=== PATIENT | female | born 1965 | race Caucasian/White ===

== ENCOUNTER 2020-05-31 15:36 | Emergency (ER) | payer OTHER ==
[2020-05-31 16:08] VITALS: BP 139/91; PULSE 89; TEMP 99.4; BMI 38.4
--- NOTE | 2020-05-31 17:16 | PDOC ---
History of Present Illness - General Chief Complaint: Pain Stated Complaint: ABD PAIN Time Seen by Provider: 05/31/20 16:12 History Source: Patient Exam Limitations: No Limitations - History of Present Illness Initial Comments: Linda Rangel is a 54 Y F with a PMH of HTn, HLD, hemorrhagic CVA(2007), ?MS, PSH of 2 C-sec, b/l tubal ligations, presents with Abdominal swelling/distension for 4 months. She reports that she went to see her electrical maintenance man today ( does not remember the name), who evaluated her heart and liver with an ultrasound. She was told by her electrical maintenance man to go to ER and get a CT scan evaluation of her liver, due to abnormal finding/mass in her liver. She reports a SOB with exertions and weight gain of about 35 lbs in recent months, denies any peripheral edema, abdominal pain, SOB at rest, chest pain, palpitations, fever, chills, nausea, vomiting, diarrhea, constipation, bright red blood per rectum, difficulty swallowing, skin discoloration, changes in vision. No hx of alcohol, smoking, illicit drugs, hepatitis, STIs, LMP few years ago, no abnormal bleeding. PCP: Antony Javier 05/31/20 17:22 05/31/20 17:41 Past History - Medical History Allergies/Adverse Reactions: Allergies Allergy/AdvReac Type Severity Reaction Status Date / Time adhesive tape Allergy Verified 06/03/20 16:58 Home Medications: Ambulatory Orders Acetaminophen 650 mg PO QID PRN 05/31/20 Alprazolam 2 mg PO DAILY 05/31/20 Amlodipine Besylate 10 mg PO DAILY 05/31/20 Ascorbate Calcium [Vitamin C] 500 mg PO DAILY 05/31/20 Aspirin 1 tab PO DAILY 05/31/20 Atorvastatin Ca [Lipitor] 10 mg PO DAILY 05/31/20 Baclofen 20 mg PO BID 05/31/20 Calcium Carbonate [Tums Ultra] 1,000 mg PO QID PRN 05/31/20 Cholecalciferol (Vitamin D3) [Vitamin D3 -] 1,000 unit PO DAILY 05/31/20 Docusate Sodium [Docusate 100 mg] 200 mg PO DAILY PRN 05/31/20 Ibuprofen 400 mg PO BID PRN 05/31/20 Labetalol HCl 100 mg PO BID 05/31/20 CVA: Yes (rt side weakness) COPD: No GI Disorders: Yes (constipation) HTN: Yes Hypercholesterolemia: Yes Psychiatric Problems: Yes (anxiety, depression) Other medical history: multiple sclerosis - Reproductive History Is Patient Now?: No - Immunization History Immunization Up to Date: Yes - Psycho-Social/Smoking History Smoking History: Never smoked Have you smoked in the past 12 months: No - Substance Abuse Hx (Audit-C & DAST Scrn) How often the patient has a drink containing alcohol: Never Score: In Men: 4 or > Positive; In Women: 3 or > Positive: 0 Screen Result (Pos requires Nsg. Audit-10AR): Negative In the last yr the pt used illegal drug/Rx for NonMed reason: No Score: Yes response is considered Positive: 0 Screen Result (Positive result requires Nsg. DAST-10): Negative Review of Systems - Review of Systems Able to Perform ROS?: Yes Is the patient limited Congolese proficient: No Constitutional: No: Chills, Fever, Night Sweats HEENTM: No: Blurred Vision, Nose Congestion, Difficulty Swallowing Respiratory: Yes: SOB with Exertion. No: Cough, Orthopnea, Shortness of Breath, SOB at Rest, Hemoptysis Cardiac (ROS): No: Chest Pain, Edema, Lightheadedness, Palpitations ABD/GI: Yes: Abdominal Distended. No: Abd. Pain w/ defecation, Constipated, Diarrhea, Difficulty Swallowing, Nausea, Rectal Bleeding, Vomiting, Abdominal cramping : No: Burning, Dysuria, Discharge, Frequency, Flank Pain, Hematuria Musculoskeletal: No: Back Pain, Joint Pain Integumentary: No: Change in Color, Pruritus Neurological: No: Headache, Numbness, Paresthesia, Pre-Existing Deficit *Physical Exam - Vital Signs Last Vital Signs Temp Pulse Resp BP Pulse Ox 99.4 F 89 18 139/91 95 05/31/20 15:40 05/31/20 15:40 05/31/20 15:40 05/31/20 15:40 05/31/20 15:40 - Physical Exam General Appearance: Yes: Obese. No: Apparent Distress HEENT: positive: EOMI, DUSTIN. negative: Scleral Icterus (R), Scleral Icterus (L), Nasal Congestion, Rhinorrhea Neck: positive: Supple. negative: Carotid bruit, Lymphadenopathy (R), Lymphadenopathy (L) Respiratory/Chest: positive: Lungs Clear, Normal Breath Sounds. negative: Chest Tender, Respiratory Distress, Crackles, Rales, Rhonchi Cardiovascular: positive: Regular Rhythm, Regular Rate, S1, S2. negative: Edema, JVD, Murmur Vascular Pulses: Carotid (R): 2+, Carotid (L): 2+, Dorsalis-Pedis (R): 1+, Doralis-Pedis (L): 1+ Gastrointestinal/Abdominal: positive: Normal Bowel Sounds, Protuberent, Distended. negative: Rebound, Tenderness Musculoskeletal: negative: CVA Tenderness, Vertebral Tenderness Extremity: negative: Pedal Edema, Calf Tenderness Integumentary: positive: Normal Color, Warm, Moist. negative: Jaundice Neurologic: positive: Fully Oriented, Alert, Motor Strength 5/5, Other (b/l tremors). negative: Sensory Deficit ED Treatment Course - LABORATORY CBC & Chemistry Diagram: 05/31/20 17:00 05/31/20 17:00 - RADIOLOGY Radiology Studies Ordered: Category Date Time Status ABDOMEN CT WITH CONTRAST* [CT] Stat CT Scan 05/31/20 16:52 Ordered CXR [CHEST PA & LAT] [RAD] Stat Radiology 05/31/20 16:37 Ordered Medical Decision Making - Medical Decision Making 54 Y F with a PMH of HTn, HLD, hemorrhagic CVA(2007), ?MS, PSH of 2 C-sec, b/l tubal ligations, presents with Abdominal swelling/distension for 4 months. She was told by her electrical maintenance man to go to ER and get a CT scan evaluation of her liver, due to abnormal finding/mass in her liver. #Abdominal distension 2/2 Ascites - Portal HTN , malignancy, - referred from electrical maintenance man for liver mass/abnormality - RUQ: A very large nonspecific approx 23 x 23 cm complex fluid structure is seen within the mid abdomen. - CTAP: 27 x 25 x 19 cm noncalcified smoothly marginated nonspecific cystic structure is seen within the abdomen and pelvis, arising from the left adenexa or possible mesenteric origin. - EKG - CXR - CBC, CMP - PTT, PT(INR) - Hepatitis pannel - UA - Acetaminophen level 05/31/20 17:43 05/31/20 18:16 05/31/20 19:44 Discharge - Discharge Information Problems reviewed: Yes Clinical Impression/Diagnosis: Adnexal cyst Abdominal pain Qualifiers: Abdominal location: generalized Qualified Code(s): R10.84 - Generalized abdominal pain Condition: Unchanged/Unknown Disposition: HOME - Follow up/Referral Referrals: Antony Parson MD [Primary Care Provider] - - Patient Discharge Instructions Additional Instructions: You were seen in [facility] on 05/31/20 for abdominal distension for 4 months, without abdominal pain. You were evaluated at your cardiologists' office and was referred to ER for further evaluation of abnormal RUQ u/s findings. Repeated u/s of your abdomen revealed A very large nonspecific approx 23 x 23 cm complex fluid structure is seen within the mid abdomen. CT Abdomen/pelvis was done to evaluate further, which revealed: 27 x 25 x 19 cm noncalcified smoothly marginated nonspecific cystic structure is seen within the abdomen and pelvis, arising from the left adenexa or possible mesenteric origin. Malignancy cannot be r/o. You have no acute complaints at this time, labs and imaging did not reveal any acute pathology that warrants for inpatient treatment. Because this fluid buildup could be due to malignancy, please follow up with your outpatient street roller engineer doctor for further workup. You were advised of the risks of not following up wi th your PCP and FILM EDITOR SUPERVISOR, including not limited to: delay in diagnosis and treatment, decline in functional status, worsening of your condition, infections, and possible . - Post Discharge Activity
[2020-05-31 17:27] LABS: BASO % 0.7 % (0-2.0); EOS % 2.1 % (0-4.5); HEMATOCRIT 40.5 % (32.4-45.2); HEMOGLOBIN 13.7 GM/dL (10.7-15.3); LYMPH % 29.3 % (8-40); MCH 30.1 pg (25.7-33.7); MEAN CELL VOLUME 88.8 fl (80-96); MONO % 7.7 % (3.8-10.2); NEUT % 60.2 % (42.8-82.8); PLATELET COUNT 179 K/MM3 (134-434); RBC 4.56 M/mm3 (3.60-5.2); RDW 13.6 % (11.6-15.6)
[2020-05-31 17:36] LABS: INR 0.94 (0.83-1.09); PROTHROMBIN TIME (PATIENT) 11.1 SEC (9.7-13.0)
[2020-05-31 17:39] LABS: ACTIVATED PTT 33.2 SECONDS (25.2-36.5)
[2020-05-31 17:50] LABS: ALBUMIN 4.1 g/dl (3.4-5.0); BILIRUBIN,TOTAL 0.4 mg/dL (0.2-1); BLOOD UREA NITROGEN 13.4 mg/dL (7-18); CALCIUM 9.4 mg/dL (8.5-10.1); TOT PROT 7.1 g/dl (6.4-8.2)
--- NOTE | 2020-05-31 18:39 | PDOC ---
Documentation entered by Beka Flores SCRIBE, acting as scribe for Ivan Anthony MD. Ivan Anthony MD: This documentation has been prepared by the Sandra mojica Xhesika, SCRIBE, under my direction and personally reviewed by me in its entirety. I confirm that the documentation accurately reflects all work, treatment, procedures, and medical decision making performed by me. Attending Attestation - Resident Resident Name: SidCristofer - ED Attending Attestation I have performed the following: I have examined & evaluated the patient, The case was reviewed & discussed with the resident, I agree w/resident's findings & plan, Exceptions are as noted - HPI HPI: 05/31/20 17:08 The patient is a 54y/o F with a PMH of HTN, HLD, DM, prior hemorrhagic CVA (2007), ?MS who presents to the ED with 3-4 months of abdominal swelling/distention. Pt states she saw her electronics assembler and tester because she thought her symptoms were related to her heart. Pt states her heart exam was normal however, her electronics assembler and tester did an US of her abdomen and found a large mass. Pt states she was then advised to come to the ED for CT scan and further evaluation. Pt reports 35lb weight gain. Denies abdominal pain. The patient denies chest pain,headache and dizziness. Denies fever, chills, cough, nausea, vomiting, diarrhea and constipation. Denies dysuria, frequency, urgency and hematuria. Allergies:NKDA PCP: Antony Javier - Physicial Exam PE: 05/31/20 19:08 See resident exam - Medical Decision Making 05/31/20 19:08 54 F with abdominal distention with fluid wave. Will evaluate for liver failure. Possible malignancy. - Labs - CTAP - Abd US 05/31/20 19:42 CT shows large cyst, adnexal vs mesenteric. Discussed results with pt, who will f/u with her account director Dr. Alcazar. Pt is well appearing, with normal vitals. Clinically stable for DC at this time. I discussed the physical exam findings, ancillary test results and final diagnoses with the patient. I answered all of the patient's questions. The patient was satisfied with the care received and felt comfortable with the discharge plan and treatment plan. The patient agrees to follow up with the primary care physician within 24-72 hours. Discharge - Discharge Information Problems reviewed: Yes Clinical Impression/Diagnosis: Abdominal pain, Adnexal cyst Condition: Unchanged/Unknown Disposition: HOME - Follow up/Referral Referrals: Antony Parson MD [Primary Care Provider] - - Patient Discharge Instructions Additional Instructions: You were seen in [facility] on 05/31/20 for abdominal distension for 4 months, without abdominal pain. You were evaluated at your cardiologists' office and was referred to ER for further evaluation of abnormal RUQ u/s findings. Repeated u/s of your abdomen revealed A very large nonspecific approx 23 x 23 cm complex fluid structure is seen within the mid abdomen. CT Abdomen/pelvis was done to evaluate further, which revealed: 27 x 25 x 19 cm noncalcified smoothly marginated nonspecific cystic structure is seen within the abdomen and pelvis, arising from the left adenexa or possible mesenteric origin. Malignancy cannot be r/o. You have no acute complaints at this time, labs and imaging did not reveal any acute pathology that warrants for inpatient treatment. Because this fluid buildup could be due to malignancy, please follow up with your outpatient shirt cleaner doctor for further workup. You were advised of the risks of not following up with your PCP and MANAGER SUPPLY CHAIN PLANNING, including not limited to: delay in diagnosis and treatment, decline in functional status, worsening of your condition, infections, and possible . - Post Discharge Activity
[2020-05-31 19:52] LABS: PH,URINE 5.5 (5.0-8.0); URINE APPEARANCE Clear; URINE BILIRUBIN Negative (NEGATIVE); URINE COLOR Yellow; URINE GLUCOSE (UA) Negative (NEGATIVE); URINE KETONE Negative (NEGATIVE); URINE LEUK ESTERASE Negative (NEGATIVE); URINE NITRITE Negative (NEGATIVE); URINE PROTEIN Negative (NEGATIVE); URINE UROBILINOGEN 0.2 mg/dL (0.2-1.0)
[2020-05-31 20:24] LABS: EPI CELLS 230.4 /uL (0-25.1); HYALINE CASTS 6.16 /uL (0-3.1); URINE BACTERIA 6840.1 /uL (0-1359); URINE CRYSTALS NEGATIVE /hpf; URINE RBC 40.5 /uL (0-23.9); URINE WBC 41.8 /uL (0-25.8)
--- NOTE | 2020-06-01 13:23 | EKG ---
Test Reason : Blood Pressure : / mmHG Vent. Rate : 079 BPM Atrial Rate : 079 BPM P-R Int : 152 ms QRS Dur : 098 ms QT Int : 376 ms P-R-T Axes : 019 -12 007 degrees QTc Int : 431 ms NORMAL SINUS RHYTHM VOLTAGE CRITERIA FOR LEFT VENTRICULAR HYPERTROPHY NONSPECIFIC ST AND T WAVE ABNORMALITY ABNORMAL ECG NO PREVIOUS ECGS AVAILABLE Confirmed by Ambreen Crane ([id number]) on 06/01/2020 1:23:09 PM Referred By: Confirmed By:Ambreen Crane
== END 2020-05-31 23:39 | disposition home or self-care (01) ==
LOC: JER 15:36
DX: N83.8 Other noninflammatory disorders of ovary, fallopian tube and broad ligament (principal); R10.84 Generalized abdominal pain
CPT/HCPCS: 36415; 71046-TC-FY; 74177-TC; 76705-TC; 80053; 80074; 80307; 81003; 85025; 85610; 85730; 93005; 93010; 99285-25; Q9967

== ENCOUNTER 2020-06-03 16:52 | Inpatient (IN) | payer OTHER ==
[2020-06-03] MEDS ORDERED: SODIUM CHLORIDE 1,000 ML IV STA (17:02)
--- NOTE | 2020-06-03 17:03 | PDOC ---
Rapid Medical Evaluation Time Seen by Provider: 06/03/20 16:59 Medical Evaluation: Allergies Allergy/AdvReac Type Severity Reaction Status Date / Time adhesive tape Allergy Verified 06/03/20 16:58 06/03/20 16:59 Pt presents to the ER for evaluation of an abdominal mass and pain. Was seen on 05/31/2020 and diagnosed with a large complex fluid structure. Pt left AMA Exam: Distended abdomen with diffuse tenderness Orders: labs, EKG, IV Pt to proceed to the ER for further evaluation Discharge Disposition - Diagnosis Abdominal pain Qualifiers: Abdominal location: generalized Qualified Code(s): R10.84 - Generalized abdominal pain - Referrals - Patient Instructions - Post Discharge Activity
[2020-06-03 17:44] LABS: BASO % 0.8 % (0-2.0); HEMATOCRIT 40.6 % (32.4-45.2); HEMOGLOBIN 13.6 GM/dL (10.7-15.3); LYMPH % 33.9 % (8-40); MCH 30.1 pg (25.7-33.7); MCHC 33.6 g/dl (32.0-36.0); MEAN CELL VOLUME 89.5 fl (80-96); MONO % 8.1 % (3.8-10.2); NEUT % 55.2 % (42.8-82.8); PLATELET COUNT 180 K/MM3 (134-434); RBC 4.53 M/mm3 (3.60-5.2); RDW 13.6 % (11.6-15.6); WHITE BLOOD COUNT 5.9 K/mm3 (4.0-10.0)
[2020-06-03 18:09] LABS: ALBUMIN 4.1 g/dl (3.4-5.0); BILIRUBIN,TOTAL 0.4 mg/dL (0.2-1); BLOOD UREA NITROGEN 11.5 mg/dL (7-18); CALCIUM 9.1 mg/dL (8.5-10.1); CREATININE 0.9 mg/dL (0.55-1.3); INR 0.88 (0.83-1.09); POTASSIUM 4.5 mmol/L (3.5-5.1); PROTHROMBIN TIME (PATIENT) 10.4 SEC (9.7-13.0); TOT PROT 7.2 g/dl (6.4-8.2)
--- NOTE | 2020-06-03 18:48 | PDOC ---
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 The patient admits to putting on roughly 35 pounds of weight over the last 6 months and has been asking her primary doctor what the cause of her weight gain was. She came to the ER and was found to have a roughly 23 cm mass originating from her adnexa of unknown etiology. The patient denies any change in her bowel or bladder habits. She denies any fevers or chills. She states she would now like to be admitted despite declining 3 days ago for further evaluation and treatment secondary to her abdominal discomfort getting worse. <Nikkie Koo - Last Filed: 06/03/20 19:48> <Ary Collier - Last Filed: 06/03/20 20:18> - General Chief Complaint: Pain Stated Complaint: Pain Time Seen by Provider: 06/03/20 16:59 Past History - Medical History CVA: Yes (rt side weakness) COPD: No GI Disorders: Yes (constipation) HTN: Yes Hypercholesterolemia: Yes Psychiatric Problems: Yes (anxiety, depression) - Immunization History Immunization Up to Date: Yes - Psycho-Social/Smoking History Smoking History: Never smoked Have you smoked in the past 12 months: No - Substance Abuse Hx (Audit-C & DAST Scrn) How often the patient has a drink containing alcohol: Never Score: In Men: 4 or > Positive; In Women: 3 or > Positive: 0 Screen Result (Pos requires Nsg. Audit-10AR): Negative In the last yr the pt used illegal drug/Rx for NonMed reason: No Score: Yes response is considered Positive: 0 Screen Result (Positive result requires Nsg. DAST-10): Negative <Nikkie Koo - Last Filed: 06/03/20 19:48> <Ary Collier - Last Filed: 06/03/20 20:18> - Medical History Allergies/Adverse Reactions: Allergies Allergy/AdvReac Type Severity Reaction Status Date / Time adhesive tape Allergy Verified 06/03/20 16:58 Home Medications: Ambulatory Orders Acetaminophen 650 mg PO QID PRN 05/31/20 Alprazolam 2 mg PO DAILY 05/31/20 Amlodipine Besylate 10 mg PO DAILY 05/31/20 Ascorbate Calcium [Vitamin C] 500 mg PO DAILY 05/31/20 Aspirin 1 tab PO DAILY 05/31/20 Atorvastatin Ca [Lipitor] 10 mg PO DAILY 05/31/20 Baclofen 20 mg PO BID 05/31/20 Calcium Carbonate [Tums Ultra] 1,000 mg PO QID PRN 05/31/20 Cholecalciferol (Vitamin D3) [Vitamin D3 -] 1,000 unit PO DAILY 05/31/20 Docusate Sodium [Docusate 100 mg] 200 mg PO DAILY PRN 05/31/20 Ibuprofen 400 mg PO BID PRN 05/31/20 Labetalol HCl 100 mg PO BID 05/31/20 Review of Systems - Review of Systems Comments:: 06/03/20 18:44 - Review of Systems Able to Perform ROS?: Yes Constitutional: No: Fever, Chills, Loss of Appetite, Night Sweats, Weakness HEENTM: No: Eye Pain, Vision changes, Ear Pain, Throat Pain, Throat Swelling, Mouth Pain, Difficulty Swallowing Respiratory: No: Cough, Shortness of Breath, Wheezing, Sputum Production Cardiac (ROS): No: Chest Pain, Chest Tightness, Palpitations, Irregular Heart Beat, Edema ABD/GI: No: Nausea, Vomiting, Diarrhea; positive: Worsening abdominal pressure : No Dysuria, No Hematuria, No Frequency, No Urgency, No Vaginal Discharge/Pain Musculoskeletal: No: Muscle Pain, Back Pain, Joint Pain, Muscle Weakness, Neck Pain Integumentary: No: Lesions, Rash Neurological: No: Headache, Numbness, Tingling, Weakness, Speech Difficulties <Nikkie Koo - Last Filed: 06/03/20 19:48> *Physical Exam - Vital Signs Last Vital Signs Temp Pulse Resp BP Pulse Ox 98.6 F 81 20 134/90 99 06/03/20 16:59 06/03/20 16:59 06/03/20 16:59 06/03/20 16:59 06/03/20 16:59 - Physical Exam 06/03/20 18:45 - Physical Exam General Appearance: Nourished, Appropriately Dressed, No Distress HEENT: EOMI, Normal Voice, Hearing Grossly Normal Respiratory/Chest: Lungs Clear, Normal Breath Sounds. No Respiratory Distress, No Accessory Muscle Use Cardiovascular: Regular Rhythm, Regular Rate, S1, S2 Gastrointestinal/Abdominal: Normal Bowel Sounds, Soft. Significantly distended abdomen with palpable mass appreciated. Mild tenderness to palpation. No rebound or guarding. No rigidity. Musculoskeletal: Normal Inspection. No Decreased Range of Motion Extremity: Normal Capillary Refill, Normal Inspection Integumentary: Normal Color, Dry. No Rash Neurologic: cotton header II-XII NML intact, Fully Oriented, Alert, Normal Mood/Affect, Normal Response <Nikkie Koo - Last Filed: 06/03/20 19:48> - Vital Signs Last Vital Signs Temp Pulse Resp BP Pulse Ox 98.6 F 81 20 134/90 99 06/03/20 16:59 06/03/20 16:59 06/03/20 16:59 06/03/20 16:59 06/03/20 16:59 <Ary Collier - Last Filed: 06/03/20 20:18> ED Treatment Course - LABORATORY CBC & Chemistry Diagram: 06/03/20 17:28 06/03/20 17:28 - ADDITIONAL ORDERS Additional order review: Laboratory Results 06/03/20 06/03/20 17:28 17:28 PT with INR 10.40 INR 0.88 Sodium 143 Potassium 4.5 Chloride 107 Carbon Dioxide 28 Anion Gap 8 BUN 11.5 Creatinine 0.9 Est GFR (CKD-EPI)AfAm 83.43 Est GFR (CKD-EPI)NonAf 71.98 Random Glucose 96 Calcium 9.1 Total Bilirubin 0.4 AST 29 ALT 23 Alkaline Phosphatase 72 Total Protein 7.2 Albumin 4.1 06/03/20 17:28 RBC 4.53 MCV 89.5 MCHC 33.6 RDW 13.6 MPV 9.0 Neutrophils % 55.2 Lymphocytes % 33.9 Monocytes % 8.1 Eosinophils % 2.0 Basophils % 0.8 <Nikkie Koo - Last Filed: 06/03/20 19:48> - LABORATORY CBC & Chemistry Diagram: 06/03/20 17:28 06/03/20 17:28 - ADDITIONAL ORDERS Additional order review: Laboratory Results 06/03/20 06/03/20 17:28 17:28 PT with INR 10.40 INR 0.88 Sodium 143 Potassium 4.5 Chloride 107 Carbon Dioxide 28 Anion Gap 8 BUN 11.5 Creatinine 0.9 Est GFR (CKD-EPI)AfAm 83.43 Est GFR (CKD-EPI)NonAf 71.98 Random Glucose 96 Calcium 9.1 Total Bilirubin 0.4 AST 29 ALT 23 Alkaline Phosphatase 72 Total Protein 7.2 Albumin 4.1 06/03/20 17:28 RBC 4.53 MCV 89.5 MCHC 33.6 RDW 13.6 MPV 9.0 Neutrophils % 55.2 Lymphocytes % 33.9 Monocytes % 8.1 Eosinophils % 2.0 Basophils % 0.8 - Medications Given in the ED: ED Medications Discontinued Medications Generic Name Dose Route Start Last Admin Trade Name Freq PRN Reason Stop Dose Admin Sodium Chloride 1,000 mls @ 1,000 mls/hr 06/03/20 17:02 06/03/20 19:54 Normal Saline - IV 06/03/20 18:01 1,000 mls/hr ASDIR STA Administration <Ary Collier - Last Filed: 06/03/20 20:18> Medical Decision Making - Medical Decision Making 06/03/20 18:47 Assessment: Patient is a 54-year-old female with a large abdominal mass with worsening discomfort. Plan: -Repeat lab -Ultrasound and CT performed on 05/31 and reviewed -Patient to be admitted for further evaluation and treatment. -Will reassess 06/03/20 19:48 The patient's labs have resulted and they were all stable. The patient will be admitted for further evaluation and treatment of abdominal mass and worsening abdominal pressure. <Nikkie Koo - Last Filed: 06/03/20 19:48> - Medical Decision Making 06/03/20 20:18 Patient admitted to the hospitalist service to Dr. Stephens 06/03/20 20:18 <Ary Collier - Last Filed: 06/03/20 20:18> Discharge - Discharge Information Problems reviewed: Yes - Admission Yes <Nikkie Koo - Last Filed: 06/03/20 19:48> <Ary Collier - Last Filed: 06/03/20 20:18> - Discharge Information Clinical Impression/Diagnosis: Abdominal pain Qualifiers: Abdominal location: generalized Qualified Code(s): R10.84 - Generalized abdominal pain Abdominal mass Qualifiers: Abdominal location: generalized Qualified Code(s): R19.07 - Generalized intra- abdominal and pelvic swelling, mass and lump
[2020-06-03] MEDS ORDERED: ACETAMINOPHEN 1000 MG/100 ML VIAL (NON FORMULARY) IVPB ONE (20:50)
[2020-06-03] MEDS ORDERED: ACETAMINOPHEN INJECTION 100 ML IVPB ONE (21:07)
--- NOTE | 2020-06-03 21:40 | PN ---
Teaching Attending Note Name of Resident: Max Hendricks ATTENDING PHYSICIAN STATEMENT I saw and evaluated the patient. I reviewed the resident's note and discussed the case with the resident. I agree with the resident's findings and plan as documented. SUBJECTIVE: 54 years with a history of hypertension, hyperlipidemia hemorrhagic stroke with left-sided residual presented to hospital with worsening abdominal discomfort/pressure like sensation. associated SOB,URGENCY and STRESS INCONTINENCE when she laughs. She also has been having weight gains of 35 LBS over last 6 months. She denies chest pain, SOB, nausea,vomiting, diarrhea, constipation. After com ing to ED she was found to have 23 cm mass originating from her adnexa of unknown etiology. OBJECTIVE: Last Vital Signs Temp Pulse Resp BP Pulse Ox 98.6 F 81 20 134/90 99 06/03/20 16:59 06/03/20 16:59 06/03/20 16:59 06/03/20 16:59 06/03/20 21:54 General Appearance: Obese, Nourished, Appropriately Dressed, No Distress HEENT: EOMI, Normal Voice, Hearing Grossly Normal Respiratory/Chest: Lungs Clear, Normal Breath Sounds. No Respiratory Distress, No Accessory Muscle Use Cardiovascular: Regular Rhythm, Regular Rate, S1, S2 Gastrointestinal/Abdominal: soft, distended, mass palpable non tender Musculoskeletal: Normal Inspection. No Decreased Range of Motion Extremity: Normal Capillary Refill, Normal Inspection Integumentary: Normal Color, Dry. No Rash Neurologic: cash on delivery clerk II-XII NML intact, Fully Oriented, Alert, Normal Mood/Affect, No focal neurologic deficit ASSESSMENT AND PLAN: Abd discomfort/pressure like sensation fron large Abd mass L adnexa ?ovarian cyst r/o malignancy hypertension, hyperlipidemia hemorrhagic stroke with left-sided residual Admit to floor TREE CARE FOREMAN consult possible biopsy of the mass vs exploratory laparotomy CA 125 keep NPO for now CT abd reviewed Oncology consult NPO for now gentle hydration Analgesia as needed Resume home medications DVT ppx
[2020-06-03] MEDS ORDERED: ACETAMINOPHEN 1000 MG/100 ML VIAL (NON FORMULARY) IVPB PRN (21:57)
[2020-06-03] MEDS ORDERED: HEPARIN NA (PORCINE) 5,000 UNITS/ML 1ML VIAL ONE (22:39)
[2020-06-03 22:51] LABS: URINE APPEARANCE CLEAR; URINE BILIRUBIN NEGATIVE (NEGATIVE); URINE COLOR YELLOW; URINE GLUCOSE (UA) NEGATIVE (NEGATIVE); URINE KETONE NEGATIVE (NEGATIVE); URINE LEUK ESTERASE NEGATIVE (NEGATIVE); URINE NITRITE NEGATIVE (NEGATIVE); URINE PROTEIN NEGATIVE (NEGATIVE)
[2020-06-03] MEDS: DEXTROSE 5%-NORMAL SALINE 1,000 ML IV SCH (23:05)
[2020-06-03] MEDS: HEPARIN NA (PORCINE) 5,000 UNITS/ML 1ML VIAL SQ SCH (23:12)
--- NOTE | 2020-06-04 05:37 | HP ---
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 At onset of symptom, patient complained of progressive increase in abdominal size but weight loss was recommended as symptoms were suspected to be due to weight gain. However, no investigations were carried out. There is assoc constipation, feelig of heart cheung, urinary frequence + stress incontinence when laughing or stretching her legs. Patient also admits to SOB on ambulation + orthopnea only and preferred to have her ED bed elevated to about 45 degree. There was no weight loss, fevers,chills, nausea, vomiting, abdominal pain, gall stones, diarrhea, melena, hematochezia, hemoptysis, chest pain, vaginal bleeding or discharge but vaginal discharge was present on Pelvic exam. No hx of trauma or alcoholm use. Abdominal mass was found on abdominal USS ordered by her corporate security officer during a plan visit for echocardiography and was thus advised to report to the hospital for further evaluation. She presented to ED 3 days ago during which a Abdominal and Pelvic CT was done with results further confirming a complex cystic abdominal mass measurimg [id number], smoothly marginated, noncalcified, ?arising from left adnexa or possible mesenteric origin. An ultrasound done showed similar findings. Patient signed AMA and left same day but came back today due to persistent feeling of abdominal discomfort. ER course was notable for: (1) (2) (3) Recent Travel: NONE PAST SURGICAL HISTORY: , Uterine ablation in 2013 Social History: Patient lives in an assisted living facility and say she has lots of support. hAS Medicare insurance. Walks with a walker but was carried in ED on wheelchair because her walker was forgotten in EMS van. Smoking:None Alcohol:None Drugs: None Allergies: Minocycline and adhesive tape with hives. No known allergy to food FHx: Breast cancer in mother with b/t mastectomy and lung cancer in father with brain metastasis OB/GYNAE:LMP 2013. Para 2, last mammogram was 2yrs ago. Never done colonoscopy but encouraged to do so. Not sexually active for the past 9months. HOME MEDICATIONS: Home Medications Medication Instructions Recorded Alprazolam 2 mg PO DAILY 05/31/20 Amlodipine Besylate 10 mg PO DAILY 05/31/20 Ascorbate Calcium [Vitamin C] 500 mg PO DAILY 05/31/20 Aspirin 1 tab PO DAILY 05/31/20 Atorvastatin Ca [Lipitor] 10 mg PO DAILY 05/31/20 Calcium Carbonate [Tums Ultra] 1,000 mg PO QID PRN 05/31/20 Cholecalciferol (Vitamin D3) 1,000 unit PO DAILY 05/31/20 [Vitamin D3 -] Docusate Sodium [Docusate 100 mg] 200 mg PO DAILY PRN 05/31/20 Labetalol HCl 100 mg PO BID 05/31/20 REVIEW OF SYSTEMS Negative exceot as above PHYSICAL EXAMINATION Vital Signs - 24 hr 06/03/20 06/03/20 06/04/20 16:59 21:54 00:57 Temperature 98.6 F 97.7 F Pulse Rate 81 Pulse Rate [ 69 Left Radial] Respiratory 20 18 Rate Blood Pressure 134/90 Blood Pressure 142/98 [Left Arm] O2 Sat by Pulse 99 99 96 Oximetry (%) 06/04/20 04:45 Temperature 98.3 F Pulse Rate Pulse Rate [ 76 Left Radial] Respiratory 17 Rate Blood Pressure Blood Pressure 134/98 [Left Arm] O2 Sat by Pulse 98 Oximetry (%) GENERAL: Awake, alert, and fully oriented HEAD: Normal with no signs of trauma. EYES: Sclera anicteric NECK: Normal range of motion, supple without lymphadenopathy, no masses. LUNGS: Vesicular breath sounds b/l equal on both lungs, No wheezes, and no crackles. No obvious signs of respiratory distress HEART: Regular rate and rhythm, normal S1 and S2 without murmur, rub or gallop. ABDOMEN: No excoriations garza, no distended superficial vessels, uniform, massively distended with a cystic mass about 40wks GA. Non tender, soft, non fluctuant, non pulsatile, isolated. Abdominal organ palpation limited by mass size. UPPER EXTREMITIES:radial pulses present, well-perfused. LOWER EXTREMITIES: No pedal edema. NEUROLOGICAL: Cranial nerves II-XII intact. Normal speech. PSYCHIATRIC: Cooperative. Good eye contact. Appropriate mood and affect. SKIN: Warm, dry, normal turgor, no rashes or lesions noted PELVIC EXAM: Bimanual pelvic limited by abdominal mass, however, no suprapubic tenderness. Vaginal Sperculum exam: Large size sperculum was used, no excoriations or perinal lesions observed, insertion was unconfortable but no painful. Examination yielded a copious whitish vaginal discharge, non malodorous. Laboratory Results - last 24 hr 06/03/20 06/03/20 06/03/20 17:28 17:28 17:28 WBC 5.9 RBC 4.53 Hgb 13.6 Hct 40.6 MCV 89.5 MCH 30.1 MCHC 33.6 RDW 13.6 Plt Count 180 MPV 9.0 Absolute Neuts (auto) 3.2 Neutrophils % 55.2 Lymphocytes % 33.9 Monocytes % 8.1 Eosinophils % 2.0 Basophils % 0.8 Nucleated RBC % 0 PT with INR 10.40 INR 0.88 Sodium 143 Potassium 4.5 Chloride 107 Carbon Dioxide 28 Anion Gap 8 BUN 11.5 Creatinine 0.9 Est GFR (CKD-EPI)AfAm 83.43 Est GFR (CKD-EPI)NonAf 71.98 Random Glucose 96 Calcium 9.1 Total Bilirubin 0.4 AST 29 ALT 23 Alkaline Phosphatase 72 Total Protein 7.2 Albumin 4.1 Urine Color Urine Appearance Urine pH Ur Specific [place] Urine Protein Urine Glucose (UA) Urine Ketones Urine Blood Urine Nitrite Urine Bilirubin Urine Urobilinogen Ur Leukocyte Esterase 06/03/20 22:41 WBC RBC Hgb Hct MCV MCH MCHC RDW Plt Count MPV Absolute Neuts (auto) Neutrophils % Lymphocytes % Monocytes % Eosinophils % Basophils % Nucleated RBC % PT with INR INR Sodium Potassium Chloride Carbon Dioxide Anion Gap BUN Creatinine Est GFR (CKD-EPI)AfAm Est GFR (CKD-EPI)NonAf Random Glucose Calcium Total Bilirubin AST ALT Alkaline Phosphatase Total Protein Albumin Urine Color Yellow Urine Appearance Clear Urine pH 6.0 Ur Specific [place] 1.019 Urine Protein Negative Urine Glucose (UA) Negative Urine Ketones Negative Urine Blood Negative Urine Nitrite Negative Urine Bilirubin Negative Urine Urobilinogen 1.0 Ur Leukocyte Esterase Negative ASSESSMENT/PLAN: Patient is a 54yo F with a past medical hx of HTN, HLD,STROKE and recently d iagnosed cerebellar degeneration now complaining of progressive abdominal mass of 6months duration. # OVARIAN MASS SUSPECTED FOR MALIGNANCY Hx of progressive abdominal mass FHx of malignancy: breast and lungs cancer Uterine size equivalent to [address] and US: complex cystic mass Consult OBGYN Consult Oncologist CA-125 NPO CXR EKG PT/ INR CMP Rehydrate D5-NS 75ml/hr # HTN: Known hypertensive on labetalol 100mg bid and amlodipine 10mg daily Hx of stroke with residual limited mobility, walks with a walker but carried on a wheel chair in ER Continue BP meds I will educate patient the importance of medication adherence and consequence of improper dosing Continue BP monitoring Patient to follow-up with PCP on discharge for continous and optimal BP control # HYPERLIPIDEMIA: Know hx of hyperlipidemia and HTN Continue Lipitor 10mg daily Patient to f/u with PCP # CEREBELLAR DEGENERATION: Recently diagnosed cerebellar degeneration Patient to f/u with neurologist #GERD: Hx of GERD Abdominal mass GA 40 wk with assoc constipation,SOB, stress incontinence and urgency Protonix 40mg daily Monitor for symptom resolution post Laparotomy Visit type - Emergency Visit Emergency Visit: Yes ED Registration Date: 06/03/20 Care time: The patient presented to the Emergency Department on the above date and was hospitalized for further evaluation of their emergent condition. - New Patient This patient is new to me today: Yes Date on this admission: 06/04/20 - Critical Care Critical Care patient: No ATTENDING PHYSICIAN STATEMENT I saw and evaluated the patient. I reviewed the resident's note and discussed the case with the resident. I agree with the resident's findings and plan as documented. SUBJECTIVE: OBJECTIVE: ASSESSMENT AND PLAN:
[2020-06-04] MEDS ORDERED: HEPARIN NA (PORCINE) 5,000 UNITS/ML 1ML VIAL ONE ×2 (06:02→15:06)
[2020-06-04] MEDS: HEPARIN NA (PORCINE) 5,000 UNITS/ML 1ML VIAL SQ SCH ×3 (06:08→22:26)
[2020-06-04 07:24] LABS: BASO % 0.8 % (0-2.0); EOS % 1.8 % (0-4.5); HEMATOCRIT 36.3 % (32.4-45.2); HEMOGLOBIN 12.1 GM/dL (10.7-15.3); LYMPH % 31.2 % (8-40); MCH 29.5 pg (25.7-33.7); MCHC 33.2 g/dl (32.0-36.0); MEAN CELL VOLUME 88.9 fl (80-96); MEAN PLT VOLUME 9.1 fl (7.5-11.1); MONO % 8.5 % (3.8-10.2); NEUT % 57.7 % (42.8-82.8); PLATELET COUNT 159 K/MM3 (134-434); RBC 4.08 M/mm3 (3.60-5.2); RDW 13.2 % (11.6-15.6); WHITE BLOOD COUNT 5.8 K/mm3 (4.0-10.0)
[2020-06-04 07:45] LABS: POTASSIUM 3.8 mmol/L (3.5-5.1)
[2020-06-04 07:54] LABS: ALBUMIN 3.6 g/dl (3.4-5.0); BILIRUBIN,TOTAL 0.6 mg/dL (0.2-1); CALCIUM 8.4 mg/dL (8.5-10.1); CREATININE 0.8 mg/dL (0.55-1.3); MAGNESIUM 2.1 mg/dL (1.8-2.4); PHOSPHOROUS 2.7 mg/dL (2.5-4.9); TOT PROT 6.2 g/dl (6.4-8.2)
--- NOTE | 2020-06-04 08:44 | PN ---
Progress Note, Physician Chief Complaint: Complaint of abdominal discomfort History of Present Illness: 54 years old female history of hypertension, dyslipidemia type 2 diabetes mellitus history of CVA in 2008 residual left-sided weakness a resident of [facility] living patient visited [place] ED on May 31, 2020 for abdominal distention for past 6 months gradually increasing, feels something is moving inside the stomach, CT scan was performed that shows a 27 cm x 25 x 17 centimeters cystic mass most likely from left of the aorta mesenteric, patient signed AMA,Yesterday came to ED for worsening abdominal distention, able to pass flatus and stool all labs are at baseline - Current Medication List Current Medications: Active Medications Acetaminophen (Ofirmev Injection -) 1,000 mg IVPB Q6H PRN PRN Reason: PAIN LEVEL 6-10 Stop: 06/04/20 21:57 Amlodipine Besylate (Norvasc -) 10 mg PO DAILY GOD[facility] Atorvastatin Calcium (Lipitor -) 10 mg PO HS [facility] Heparin Sodium (Porcine) (Heparin -) 5,000 unit SQ TID [facility] Last Admin: 06/04/20 06:08 Dose: 5,000 unit Documented by: Dextrose/Sodium Chloride (D5-Ns -) 1,000 mls @ 75 mls/hr IV ASDIR [facility] Last Admin: 06/03/20 23:05 Dose: 75 mls/hr Documented by: - Objective Vital Signs: Vital Signs Temperature 98.3 F 06/04/20 04:45 Pulse Rate 76 06/04/20 04:45 Respiratory Rate 17 06/04/20 04:45 Blood Pressure 134/98 06/04/20 04:45 O2 Sat by Pulse Oximetry (%) 98 06/04/20 04:45 General: Middle-aged woman, comfortable, not in distress HEENT mucous membranes moist, no anemia, no jaundice, PERRLA, no nystagmus Neck: No JVD, supple, no bruit, thyroid palpably normal, normal carotid pulsations. Chest: Nontender, clear to auscultation bilaterally CVS: S1-S2 regular no murmur/gallop/rub Abdomen: Distended , palpable mass, soft nontender bowel sounds present. Extremities: No edema., No Calf tenderness, pulses present LOCKS TENDER: AO X3 , no gross motor sensory deficit Labs: CBC, BMP 06/04/20 05:40 08/11/20 05:40 INR, PTT INR 0.88 (0.83-1.09) 06/03/20 17:28 - ....Imaging Cat Scan: Report Reviewed (Abdomen:) Problem List - Problems (1) Abdominal mass Assessment/Plan: Patient has large cystic lesion noncalcified, origin is unclear either ovarian or mesenteric, CEA 125 is pending, will follow-up oncology and surgery input Problems reviewed: Yes Code(s): R19.00 - INTRA-ABD AND PELVIC SWELLING, MASS AND LUMP, UNSP SITE Qualifiers: Abdominal location: generalized Qualified Code(s): R19.07 - Generalized intra-abdominal and pelvic swelling, mass and lump (2) Hypertension Assessment/Plan: Well controlled we will resume all home medication Problems reviewed: Yes Code(s): I10 - ESSENTIAL (PRIMARY) HYPERTENSION (3) Obesity (BMI 30-39.9) Problems reviewed: Yes Code(s): E66.9 - OBESITY, UNSPECIFIED (4) History of CVA (cerebrovascular accident) Assessment/Plan: Patient has history of hemorrhagic CVA in 2007 left-sided residual weakness Problems reviewed: Yes Code(s): Z86.73 - PRSNL HX OF TIA (TIA), AND CEREB INFRC W/O RESID DEFICITS
--- NOTE | 2020-06-04 10:20 | CONSULT ---
Consultation: REQUESTING PROVIDER: Dr. Handy CONSULT REQUEST: We have been asked to medically evaluate this patient for abdominal mass. HISTORY OF PRESENT ILLNESS: Patient is a 54 year old female with past medical history of HTN, HLD and hemorrhagic stroke with left sided residual weakness, presented to the hospital due to progressive enlargement of abdomen accompanied by abdominal discomfort that started 6 months ago. Patient reported she noted gradual enlargement of her belly, with vague abdominal pressure/discomfort. She lives in an assisted living facility where she would be evaluated regularly by the physician, no tests were done. There was no fevers,chills, nausea, vomiting, chest pain, shortness of breath, belly pain, constipation or diarrhea, no vaginal bleeding or discharge. Patient would report recent history of urgency and stress incontinency especially when she laughs or stretches her legs. One week ago, patient was seen by the merchandise executive, where she had an echocardiogram done, and the doctor did an abdominal ultrasound as well after noting her abdominal distention. Patient was advised to go to the hospital. Patient came to our ED 3 days ago, where a CT A/P was done revealing a [id number] noncalcified smoothly marginated nonspecific cystic structure is seen within the abdomen/pelvis ?arising from left adnexa or possible mesenteric origin. An ultrasound was done as well which showed similar results. During that visit, patient left AMA. Yesterday, patient came back to the ED because of persistent abdominal discomfort. PMHx:HTN, HLD, hemorrhagic CVA (2007) PSHx:2 c-sections, ablation for uterine fibroids about 5 years ago FHx: Mother -breast Ca at 60yo s/p double mastectomy, Father - lung Ca, Allergies: NKDA Social Hx: denies smoking, occasional EtOH use, denies illicit drug use lives at [facility] assisted [facility] for the past 2 years with dawna has 2 children, menopause >5 years Follows up with Dr. Alcazar ([facility]): pap smear 1 year ago, reported normal; mammogram 2 years ago, reported normal; has had no colonoscopy yet. REVIEW OF SYSTEMS: CONSTITUTIONAL: Absent: fever, chills, diaphoresis, generalized weakness, malaise, loss of appetite, weight change HEENT: Absent: rhinorrhea, nasal congestion, throat pain, throat swelling, difficulty swallowing, mouth swelling, ear pain, eye pain, visual changes CARDIOVASCULAR: Absent: chest pain, syncope, palpitations, irregular heart rate, lightheadedness, peripheral edema RESPIRATORY: Absent: cough, shortness of breath, dyspnea with exertion, orthopnea, wheezing, stridor, hemoptysis GASTROINTESTINAL:abdominal distension Absent: abdominal pain, nausea, vomiting, diarrhea, constipation, melena, hematochezia GENITOURINARY: Absent: dysuria, frequency, urgency, hesitancy, hematuria, flank pain, genital pain MUSCULOSKELETAL: Absent: myalgia, arthralgia, joint swelling, back pain, neck pain SKIN: Absent: rash, itching, pallor HEMATOLOGIC/IMMUNOLOGIC: Absent: easy bleeding, easy bruising, lymphadenopathy, frequent infections ENDOCRINE: Absent: unexplained weight gain, unexplained weight loss, heat intolerance, cold intolerance NEUROLOGIC: Absent: headache, focal weakness or paresthesias, dizziness, unsteady gait, seizure, mental status changes, bladder or bowel incontinence PSYCHIATRIC: Absent: anxiety, depression, suicidal or homicidal ideation, hallucinations. PHYSICAL EXAMINATION Vital Signs - 24 hr 06/03/20 06/03/20 06/04/20 16:59 21:54 00:57 Temperature 98.6 F 97.7 F Pulse Rate 81 Pulse Rate [ 69 Left Radial] Respiratory 20 18 Rate Blood Pressure 134/90 Blood Pressure 142/98 [Left Arm] O2 Sat by Pulse 99 99 96 Oximetry (%) 06/04/20 04:45 Temperature 98.3 F Pulse Rate Pulse Rate [ 76 Left Radial] Respiratory 17 Rate Blood Pressure Blood Pressure 134/98 [Left Arm] O2 Sat by Pulse 98 Oximetry (%) GENERAL: Awake, alert, and fully oriented, in no acute distress. HEAD: Normal with no signs of trauma. EYES:PERRLA, EOMI, sclera anicteric, conjunctiva clear. EARS, NOSE, THROAT: Moist mucous membranes. NECK: Normal range of motion, supple BREAST: symmetric, no skin or nipple dimpling/retraction, discoloration or discharge; no mass palpated, no axillary LAD LUNGS: Breath sounds equal, clear to auscultation bilaterally. HEART: Regular rate and rhythm, normal S1 and S2 ABDOMEN: +protruberant, distended, nontender, normoactive bowel sounds, soft mass palpable, nontender LOWER EXTREMITIES: 2+ pulses, warm, well-perfused. No calf tenderness. No peripheral edema. NEUROLOGICAL: Cranial nerves II-XII intact. Normal speech. Motor 5/5, sensation intact PSYCHIATRIC: Cooperative. Good eye contact. Appropriate mood and affect. SKIN: Warm, dry, normal turgor Laboratory Results - last 24 hr 06/03/20 06/03/20 06/03/20 17:28 17:28 17:28 WBC 5.9 RBC 4.53 Hgb 13.6 Hct 40.6 MCV 89.5 MCH 30.1 MCHC 33.6 RDW 13.6 Plt Count 180 MPV 9.0 Absolute Neuts (auto) 3.2 Neutrophils % 55.2 Lymphocytes % 33.9 Monocytes % 8.1 Eosinophils % 2.0 Basophils % 0.8 Nucleated RBC % 0 PT with INR 10.40 INR 0.88 Sodium 143 Potassium 4.5 Chloride 107 Carbon Dioxide 28 Anion Gap 8 BUN 11.5 Creatinine 0.9 Est GFR (CKD-EPI)AfAm 83.43 Est GFR (CKD-EPI)NonAf 71.98 Random Glucose 96 Calcium 9.1 Phosphorus Magnesium Total Bilirubin 0.4 AST 29 ALT 23 Alkaline Phosphatase 72 Total Protein 7.2 Albumin 4.1 Beta HCG, Quant Urine Color Urine Appearance Urine pH Ur Specific [place] Urine Protein Urine Glucose (UA) Urine Ketones Urine Blood Urine Nitrite Urine Bilirubin Urine Urobilinogen Ur Leukocyte Esterase Blood Type Antibody Screen 06/03/20 06/04/20 06/04/20 22:41 05:40 05:40 WBC 5.8 RBC 4.08 Hgb 12.1 Hct 36.3 MCV 88.9 MCH 29.5 MCHC 33.2 RDW 13.2 Plt Count 159 MPV 9.1 Absolute Neuts (auto) 3.3 Neutrophils % 57.7 Lymphocytes % 31.2 Monocytes % 8.5 Eosinophils % 1.8 Basophils % 0.8 Nucleated RBC % 0 PT with INR INR Sodium 142 Potassium 3.8 Chloride 108 H Carbon Dioxide 29 Anion Gap 4 L BUN 11.0 Creatinine 0.8 Est GFR (CKD-EPI)AfAm 96.19 Est GFR (CKD-EPI)NonAf 83.00 Random Glucose 107 H Calcium 8.4 L Phosphorus 2.7 Magnesium 2.1 Total Bilirubin 0.6 AST 20 ALT 20 Alkaline Phosphatase 64 Total Protein 6.2 L Albumin 3.6 Beta HCG, Quant 2.1 Urine Color Yellow Urine Appearance Clear Urine pH 6.0 Ur Specific [place] 1.019 Urine Protein Negative Urine Glucose (UA) Negative Urine Ketones Negative Urine Blood Negative Urine Nitrite Negative Urine Bilirubin Negative Urine Urobilinogen 1.0 Ur Leukocyte Esterase Negative Blood Type Antibody Screen 06/04/20 05:40 WBC RBC Hgb Hct MCV MCH MCHC RDW Plt Count MPV Absolute Neuts (auto) Neutrophils % Lymphocytes % Monocytes % Eosinophils % Basophils % Nucleated RBC % PT with INR INR Sodium Potassium Chloride Carbon Dioxide Anion Gap BUN Creatinine Est GFR (CKD-EPI)AfAm Est GFR (CKD-EPI)NonAf Random Glucose Calcium Phosphorus Magnesium Total Bilirubin AST ALT Alkaline Phosphatase Total Protein Albumin Beta HCG, Quant Urine Color Urine Appearance Urine pH Ur Specific [place] Urine Protein Urine Glucose (UA) Urine Ketones Urine Blood Urine Nitrite Urine Bilirubin Urine Urobilinogen Ur Leukocyte Esterase Blood Type O POSITIVE Antibody Screen Negative Active Medications Generic Name Dose Route Start Last Admin Trade Name Freq PRN Reason Stop Dose Admin Acetaminophen 1,000 mg 06/03/20 21:57 Ofirmev Injection - IVPB 06/04/20 21:57 Q6H PRN PAIN LEVEL 6-10 Amlodipine Besylate 10 mg 06/04/20 10:00 Norvasc - PO DAILY GODWIN Atorvastatin Calcium 10 mg 06/04/20 22:00 Lipitor - PO HS GODWIN Heparin Sodium (Porcine) 5,000 unit 06/03/20 22:00 06/04/20 06:08 Heparin - SQ 5,000 unit TID GODWIN Administration Dextrose/Sodium Chloride 1,000 mls @ 75 mls/hr 06/03/20 21:45 06/03/20 23:05 D5-Ns - IV 75 mls/hr ASDIR [facility] Administration ASSESSMENT/PLAN: Patient is a 54 year old female with past medical history of HTN, HLD and hemorrhagic stroke with left sided residual weakness, presented to the hospital due to progressive enlargement of abdomen accompanied by abdominal discomfort that started 6 months ago. #Abdominal mass -CT A/P was done revealing a [id number] noncalcified smoothly marginated nonspecific cystic structure is seen within the abdomen/pelvis ?arising from left adnexa or possible mesenteric origin. -ddx include serous/mucinous cystadenoma of ovary vs malignant ovarian tumors vs mesenteric cyst -b-hcg wnl, Ca 125 pending [employer] consulted. Recs appreciated. -biopsy/laparotomy to determine definite diagnosis -Will require tissue biopsy for further input Dispo: We will continue to follow the patient. Thank you for this consultative opportunity. Visit type - Emergency Visit Emergency Visit: Yes ED Registration Date: 06/03/20 Care time: The patient presented to the Emergency Department on the above date a nd was hospitalized for further evaluation of their emergent condition. - New Patient This patient is new to me today: Yes Date on this admission: 06/04/20 - Critical Care Critical Care patient: No ATTENDING PHYSICIAN STATEMENT I saw and evaluated the patient. I reviewed the resident's note and discussed the case with the resident. I agree with the resident's findings and plan as documented. SUBJECTIVE: OBJECTIVE: ASSESSMENT AND PLAN:
[2020-06-04] MEDS ORDERED: amLODIPine BESYLATE 5 MG TABLET (FP) ONE (10:49)
[2020-06-04] MEDS: amLODIPine BESYLATE 10 MG TABLET (FP) PO SCH (11:03)
[2020-06-04] MEDS ORDERED: DOCUSATE SODIUM 100 MG CAPSULE (FP) PO PRN (12:17)
[2020-06-04] MEDS ORDERED: ASPIRIN 81 MG CHEWABLE TABLETS ONE ×2 (12:48→12:52)
[2020-06-04] MEDS ORDERED: LABETALOL HCL 100 MG TABLET (FP) ONE ×2 (12:48→12:52)
[2020-06-04] MEDS: LABETALOL HCL 100 MG TABLET (FP) PO SCH ×2 (12:57→22:12)
[2020-06-04] MEDS: ASPIRIN 81 MG CHEWABLE TABLETS PO SCH (12:57)
--- NOTE | 2020-06-04 18:39 | CON.OBG ---
Consult Consult Specialty:: branch operations coordinator Referred by:: Dr Rozina Garcia MD Reason for Consultation:: large adnexal mass - History of Present Illness Chief Complaint: 54 yrs ,menopause ? 5 yrs ago admitted from ED due to large mass CT Scan : Abd Pelvis 27x 25x19 cm extending from Ltadnexa to RUQ in midline , smooth margins , internal septations , no debri seen ads seen in [place] .stomach & pancreas displaced Rt hepatic lobe low attentuation foci suspect cys ts ' History of Present Illness: pt lives in [facility] in [place] . pt had echocardiogram done as test ordered by her marketing systems manager , on 05/30/20 , was noted tohave large distended abdomen us done by tech showed large mass in her abdomen pt came to ER on 05/31/20, she left ED AMA She returned to ED today by Ambulence c/o abd discomfort increasingly more than before . Retros[ectively pt states she has noted gradual increas in girth of her abdomen, discomfort, no nausea pr vomiting or BM alterations she increasingly feel frequency of urination , urgency & stress in last few months . No burning urination or dysurian - History Source History Provided By: Patient, Medical Record Limitations to Obtaining History: No Limitations - Past Medical History MEDICAL ASSOCIATE: Yes: CVA (h/o hemorragic stroke 12 yrs ago , ?Lt sided weakness, recently she is told about ?cerebellar degenration) Cardio/Vascular: Yes: HTN, Hyperlipdemia Pulmonary: No: Asthma Gastrointestinal: Yes: Other (declines ) Hepatobiliary: Yes: Other (declines ) Reproductive: Yes: Postmenopausal (since 2013 after EM ablation . No h/o HRT ), Other (h/o abn pap & hpv infection in past , h/o colposcopy & cx cryyosyrgery ..h/o Menorrhagia in past h/oEM Ablation in [address] [facility]. Last Pap 1yr ago at 2, Marnie melendez .she was not informed , she presumes it was normal. Last mammmogram 2 yrs ago in [place] ) ...LMP: 05/25/14 ...LMP Comment: after EM ablation no periods ...: No ...: 2 ...Para: 2 (c/sections in 1990, & 1995 ) Heme/Onc: No: Anemia Infectious Disease: Yes: Other (h/o hpv in past ). No: AIDS, C-Diff, Herpes Zoster, HIV, MRSA, Tuberculosis, VREF Psych: No: Addictions, Anxiety, Bipolar, Depression, Panic, Schizophrenia, Other Musculoskeletal: Yes: Hemiparesis (left dided) Endocrine: No: Diabetes Mellitus - Past Surgical History Past Surgical History: Yes: (1990, 1995) Additional Surgical History: h/o hysteroscopic EM Ablation in 2013 - Alcohol/Substance Use Hx Alcohol Use: No History of Substance Use: reports: None - Smoking History Smoking history: Never smoked Have you smoked in the past 12 months: No - Social History Usual Living Arrangement: Assisted Living (for past 2 yrs in [facility] in [place]) Home Medications - Allergies Allergies/Adverse Reactions: Allergies Allergy/AdvReac Type Severity Reaction Status Date / Time adhesive tape Allergy Verified 06/03/20 16:58 - Home Medications Home Medications: Ambulatory Orders Alprazolam 2 mg PO 1900 05/31/20 Amlodipine Besylate 10 mg PO DAILY 05/31/20 Ascorbate Calcium [Vitamin C] 500 mg PO DAILY 05/31/20 Aspirin 1 tab PO DAILY 05/31/20 Atorvastatin Ca [Lipitor] 10 mg PO DAILY 05/31/20 Calcium Carbonate [Tums Ultra] 1,000 mg PO QID PRN 05/31/20 Cholecalciferol (Vitamin D3) [Vitamin D3 -] 1,000 unit PO DAILY 05/31/20 Docusate Sodium [Docusate 100 mg] 200 mg PO DAILY PRN 05/31/20 Labetalol HCl 100 mg PO BID 05/31/20 Baclofen 20 mg PO BID 06/04/20 Diclofenac Sodium [Pennsaid] 2 gm TP BID 06/04/20 Ibuprofen 400 mg PO BID PRN 06/04/20 Oxcarbazepine [Trileptal] 150 mg PO BID 06/04/20 Venlafaxine HCl ER [Effexor Xr -] 37.5 mg PO DAILY 06/04/20 Vortioxetine Hydrobromide [Trintellix] 20 mg PO DAILY 06/04/20 Review of Systems - Review of Systems Constitutional: reports: Other (pt uses walker for ambulation). denies: Loss of Appetite Eyes: reports: No Symptoms HENT: reports: No Symptoms Neck: reports: No Symptoms Cardiovascular: reports: No Symptoms Respiratory: reports: SOB Gastrointestinal: reports: Abdominal Pain (more of discomfirt than pain) Genitourinary: reports: Frequency, Incontinence, Other (pressure in lower abdome) Breasts: reports: No Symptoms Reported Musculoskeletal: reports: Muscle Weakness (lt sided) Integumentary: reports: No Symptoms Neurological: reports: Weakness (lt side), Other (on walker). denies: Change in Speech, Confusion, Headache, Seizure, Syncope Endocrine: reports: No Symptoms Hematology/Lymphatic: reports: No Symptoms Psychiatric: reports: No Symptoms Physical Exam-REAL ESTATE LEASING AGENT Vital Signs: Vital Signs Temperature 98.2 F 06/04/20 11:00 Pulse Rate 84 06/04/20 15:40 Respiratory Rate 18 06/04/20 15:40 Blood Pressure 137/99 06/04/20 15:40 O2 Sat by Pulse Oximetry (%) 99 06/04/20 15:40 Selected Entries 06/03/20 16:59 Weight 200 lb Constitutional: Yes: Obese Eyes: Yes: WNL HENT: Yes: Nasal Congestion Neck: Yes: WNL Cardiovascular: Yes: Other (as per pcp) Respiratory: Yes: SOB, Other (as per pcp) Gastrointestinal: Yes: Abdomen, Obese, Distention (unable to differntiate clinically mass from ascites or genralized distention of abdome). No: Tenderness ...Rectal Exam: Yes: Deferred Renal/: No: CVA Tenderness - Left, CVA Tenderness - Right Pelvis: Yes: Mass (large abdominopelvic mass upto xipisternum) External Genitalia: Yes: Normal Internal Exam Deferred: Yes Vaginal Exam: No: Bleeding Cervix: Yes: Normal. No: Bleeding Uterus: Yes: Other (unable to differentiate from large abd-pelviic mass , soft cystic mass immobile due to largeness) Labs: CBC, BMP 06/04/20 05:40 06/04/20 05:40 Assessment/Plan 54 yrs , post menopaus e, post c/sx2, post EM ablation , s/p HTN, Hyperlipidemia , Lt side weakness post hemorrhagic stroke , extensively large abd-pelvic mass cystic . Plan contacted Procurement Clerk Oncologist for [facility] -Dr Jeremiah Lazcano [phone] . tel/ con , she was in hosp today, she will come again after 2 weeks suggest : it is not an emergency Do Tumor Markers CA-125 , ( ASHLEY for ovarian Malignancy ) Medically clear the patient for surgery She can be discharge after medical clearance contact her office [phone] for appt with her for Tel Med on Wednesday06/07/20 with the patient . she will schedule her for Exp Lap
[2020-06-04 18:53] VITALS: BMI 37.6
[2020-06-04] MEDS ORDERED: ALPRAZolam 2 MG TABLET PO SCH (19:00)
--- NOTE | 2020-06-04 19:14 | PN ---
Progress Note (short form) - Note Progress Note: Paged by [address] Discussed with . Pt can be discharged. Please medically clear patient for surgery before discharge (CXR, EKG, and labwork). will leave phone number in her note for patient to call for follow-up appointment.
--- NOTE | 2020-06-04 19:14 | PN ---
Teaching Attending Note Name of Resident: Taylor Padilla ATTENDING PHYSICIAN STATEMENT I saw and evaluated the patient. I reviewed the resident's note and discussed the case with the resident. I agree with the resident's findings and plan as documented. SUBJECTIVE: Voices no complaints. Awaiting surgical team for evaluation OBJECTIVE: Last Vital Signs Temp Pulse Resp BP Pulse Ox 98.4 F 80 18 138/85 99 06/04/20 16:50 06/04/20 16:50 06/04/20 16:50 06/04/20 16:50 06/04/20 16:50 06/04/20 05:40 06/04/20 05:40 ASSESSMENT AND PLAN: 54 y/o lady with past medical history of HTN, HLD and hemorrhagic stroke with left sided residual weakness, presented to the hospital due to progressive enla rgement of abdomen accompanied by abdominal discomfort that started [address] A/P was done revealing a [id number] noncalcified smoothly marginated nonspecific cystic structure is seen within the abdomen/pelvis ?arising from left adnexa or possible mesenteric origin. Ddx include serous/mucinous cystadenoma of ovary vs malignant ovarian tumors vs mesenteric cyst. beta-hcg wnl, Ca 125 pending Recommend: 1) Agree with CLINICAL PROGRAMMER consult. 2) Will require tissue biopsy for further input 3) See note of Dr. Padilla for further details 4) Thank you for this consultation
[2020-06-04] MEDS ORDERED: ALPRAZolam 1 MG TABLET PO SCH ×2 (20:00→21:14)
[2020-06-04] MEDS ORDERED: ATORVASTATIN CA 10 MG TABLET (FP) PO SCH (22:00)
[2020-06-04] MEDS: DEXTROSE 5%-NORMAL SALINE 1,000 ML IV SCH (22:26)
[2020-06-04] MEDS: OXcarbazepine 150 MG TABLET (UD) PO SCH (22:27)
[2020-06-04] MEDS: BACLOFEN 10 MG TABLET (FP) PO SCH (22:27)
[2020-06-05] MEDS: HEPARIN NA (PORCINE) 5,000 UNITS/ML 1ML VIAL SQ SCH ×2 (06:23→13:43)
[2020-06-05 08:37] LABS: BASO % 0.9 % (0-2.0); EOS % 1.8 % (0-4.5); HEMATOCRIT 37.6 % (32.4-45.2); HEMOGLOBIN 12.6 GM/dL (10.7-15.3); MCH 29.7 pg (25.7-33.7); MCHC 33.6 g/dl (32.0-36.0); MEAN CELL VOLUME 88.5 fl (80-96); MEAN PLT VOLUME 9.3 fl (7.5-11.1); MONO % 8.9 % (3.8-10.2); NEUT % 55.4 % (42.8-82.8); PLATELET COUNT 156 K/MM3 (134-434); RBC 4.25 M/mm3 (3.60-5.2); RDW 13.3 % (11.6-15.6); WHITE BLOOD COUNT 5.3 K/mm3 (4.0-10.0)
[2020-06-05 08:48] LABS: BLOOD UREA NITROGEN 9.7 mg/dL (7-18); CALCIUM 8.7 mg/dL (8.5-10.1); CREATININE 0.8 mg/dL (0.55-1.3); POTASSIUM 3.6 mmol/L (3.5-5.1)
--- NOTE | 2020-06-05 08:52 | DS ---
Physical Examination Vital Signs: Vital Signs Temperature 97.8 F 06/05/20 06:00 Pulse Rate 78 06/05/20 06:00 Respiratory Rate 18 06/05/20 06:00 Blood Pressure 119/75 06/05/20 06:00 O2 Sat by Pulse Oximetry (%) 97 06/05/20 06:00 General: Elderly woman, comfortable, not in distress HEENT mucous membranes moist, no anemia, no jaundice, PERRLA, no nystagmus Neck: No JVD, supple, no bruit, thyroid palpably normal, normal carotid pulsations. Chest: Nontender, clear to auscultation bilaterally CVS: S1-S2 regular no murmur/gallop/rub Abdomen: Diffuse distention, with palpable mass, non-tender: Soft, bowel sounds present. Extremities: No edema., No Calf tenderness, pulses present ENGRAVER COPPERPLATE: AO X3 left-sided hemiparesis at baseline. Labs: CBC,CMP WBC 5.3 K/mm3 (4.0-10.0) 06/05/20 06:53 RBC 4.25 M/mm3 (3.60-5.2) 06/05/20 06:53 Hgb 12.6 GM/dL (10.7-15.3) 06/05/20 06:53 Hct 37.6 % (32.4-45.2) 06/05/20 06:53 MCV 88.5 fl (80-96) 06/05/20 06:53 MCH 29.7 pg (25.7-33.7) 06/05/20 06:53 MCHC 33.6 g/dl (32.0-36.0) 06/05/20 06:53 RDW 13.3 % (11.6-15.6) 06/05/20 06:53 Plt Count 156 K/MM3 (134-434) 06/05/20 06:53 MPV 9.3 fl (7.5-11.1) 06/05/20 06:53 Absolute Neuts (auto) 2.9 K/mm3 (1.5-8.0) 06/05/20 06:53 Neutrophils % 55.4 % (42.8-82.8) 06/05/20 06:53 Lymphocytes % 33.0 % (8-40) 06/05/20 06:53 Monocytes % 8.9 % (3.8-10.2) 06/05/20 06:53 Eosinophils % 1.8 % (0-4.5) 06/05/20 06:53 Basophils % 0.9 % (0-2.0) 06/05/20 06:53 Nucleated RBC % 0 % (0-0) 06/05/20 06:53 Sodium 140 mmol/L (136-145) 06/05/20 06:53 Potassium 3.6 mmol/L (3.5-5.1) 06/05/20 06:53 Chloride 107 mmol/L (98-107) 06/05/20 06:53 Carbon Dioxide 26 mmol/L (21-32) 06/05/20 06:53 Anion Gap 7 MMOL/L (8-16) L 06/05/20 06:53 BUN 9.7 mg/dL (7-18) 06/05/20 06:53 Creatinine 0.8 mg/dL (0.55-1.3) 06/05/20 06:53 Est GFR (CKD-EPI)AfAm 96.19 06/05/20 06:53 Est GFR (CKD-EPI)NonAf 83.00 06/05/20 06:53 Random Glucose 83 mg/dL (74-106) 06/05/20 06:53 Calcium 8.7 mg/dL (8.5-10.1) 06/05/20 06:53 Phosphorus 2.7 mg/dL (2.5-4.9) 06/04/20 05:40 Magnesium 2.1 mg/dL (1.8-2.4) 06/04/20 05:40 Total Bilirubin 0.6 mg/dL (0.2-1) 06/04/20 05:40 AST 20 U/L (15-37) 06/04/20 05:40 ALT 20 U/L (13-61) 06/04/20 05:40 Alkaline Phosphatase 64 U/L (45-117) 06/04/20 05:40 Total Protein 6.2 g/dl (6.4-8.2) L 06/04/20 05:40 Albumin 3.6 g/dl (3.4-5.0) 06/04/20 05:40 CA 125 Antigen 17.0 U/mL (0.0-38.1) 06/04/20 05:40 Beta HCG, Quant 2.1 mIU/ml 06/04/20 05:40 ASHLEY assessment is pending CXR: No infiltrate no cardiomegaly CT abdomen: Large cystic mass 29 x 27 x 17 possible pelvic or mesenteric in origin EKG: NORMAL SINUS RHYTHM VOLTAGE CRITERIA FOR LEFT VENTRICULAR HYPERTROPHY NONSPECIFIC ST AND T WAVE ABNORMALITY ABNORMAL ECG NO PREVIOUS ECGS AVAILABLE Confirmed by Ambreen Crane ([id number]) on 06/01/2020 1:23:09 PM Discharge Summary Problems reviewed: Yes Reason For Visit: ABD MASS,ABD PAIN Current Active Problems Abdominal mass (Acute) Abdominal pain (Acute) History of CVA (cerebrovascular accident) (Acute) Hypertension (Acute) Obesity (BMI 30-39.9) (Acute) Hospital Course: 54 years old female history of hypertension, dyslipidemia type 2 diabetes mellitus history of CVA in 2007 residual left-sided weakness a resident of [facility] living patient visited [facility] ED on May 31, 2020 for abdominal distention for past 6 months gradually increasing, feels something is moving inside the stomach, CT scan was performed that shows a 27 cm x 25 x 17 centimeters cystic mass most likely from left of the aorta mesenteric, patient signed AMA,Yesterday came to ED for worsening abdominal distention, able to pass flatus and stool all labs are at baseline, patient EKG shows LVH chest, chest x- ray no acute infiltrate, patient has no decrease in exercise tolerance present no clinical sign of decompensated congestive heart failure ischemia or cardiac arrhythmia, patient is seen and evaluated by oncology, INTERLIBRARY LOAN SERVICES LIBRARIAN, patient beta-hCG and CA-125 are normal ASHLEY risk stratification result is pending, and is tolerating p.o. denies any chest pain shortness of breath or abdominal pain no complaint of urinary frequency or dysuria, INTERLIBRARY LOAN SERVICES LIBRARIAN recommended and discussed case with INTERLIBRARY LOAN SERVICES LIBRARIAN oncology schedule appointment as an outpatient Preop evaluation; 54 years old female history of hypertension dyslipidemia type 2 diabetes mellitus hemorrhagic CVA in 2007 left-sided hemiparesis otherwise functional no recent worsening shortness of breath PND or orthopnea present with last intra- abdominal cystic mass, patient will need exploratory laparotomy by INTERLIBRARY LOAN SERVICES LIBRARIAN oncology at present patient is hemodynamically stable, all labs including renal function and hepatic functions are normal no clinical sign of cardiac ischemia, decompensated heart failure or arrhythmia EKG shows LVH consistent with hypertension, patient has intermediate cardiopulmonary risk for moderate risk surgery [exploratory laparotomy and possible cystectomy], surgery can be performed without any further work-up for cardiac pulmonary risk stratification considering left ventricular hypertrophy advised echocardiogram as an outpatient, discussed with patient PCP Dr. Sammy Parson will arrange echocardiogram. Plan of Treatment: Patient is evaluated by pass worker, recommended outpatient follow-up and arrange appointment with INTERLIBRARY LOAN SERVICES LIBRARIAN oncologist Bindery Cutter Operator Oncologist for [facility] -Dr Jeremiah Lazcano [phone] .she was in hosp today, she will come again after 2 weeks , it is not an emergency Follow-up Tumor Markers CA-125 [17 normal], ( ASHLEY for ovarian Malignancy in progress) Medically clear the patient for surgery , will be done by patient PMD at assisted living discussed with Dr. Antony Chandler Please contact INTERLIBRARY LOAN SERVICES LIBRARIAN oncology office [phone] for appt with her for Tel Med on Wednesday06/07/20 with the patient . To schedule schedule patient for Exp Lap Condition: Fair - Instructions Diet, Activity, Other Instructions: Low-salt low-cholesterol Patient is evaluated by pass worker, recommended outpatient follow-up and arrange appointment with INTERLIBRARY LOAN SERVICES LIBRARIAN oncologist Bindery Cutter Operator Oncologist for [facility] -Dr Jeremiah Lazcano [phone] .she was in hosp today, she will come again after 2 weeks , it is not an emergency Follow-up Tumor Markers CA-125 [17 normal], ( ASHLEY for ovarian Malignancy in progress) Medically clear the patient for surgery , will be done by patient PMD at assisted living discussed with Dr. Antony Chandler Please contact INTERLIBRARY LOAN SERVICES LIBRARIAN oncology office [phone] for appt with her for Tel Med on Wednesday06/07/20 with the patient . To schedule schedule patient for Exp Lap Referrals: Antony Parson MD [Non Staff, Medical] - 1 Week Jaleesa Daniels MD [Staff Physician] - 06/07/20 (Tele visit Call to [phone]) - Home Medications Comprehensive Discharge Medication List: Ambulatory Orders Alprazolam 2 mg PO 1900 05/31/20 Amlodipine Besylate 10 mg PO DAILY 05/31/20 Ascorbate Calcium [Vitamin C] 500 mg PO DAILY 05/31/20 Aspirin 1 tab PO DAILY 05/31/20 Atorvastatin Ca [Lipitor] 10 mg PO DAILY 05/31/20 Calcium Carbonate [Tums Ultra] 1,000 mg PO QID PRN 05/31/20 Cholecalciferol (Vitamin D3) [Vitamin D3 -] 1,000 unit PO DAILY 05/31/20 Docusate Sodium [Docusate 100 mg] 200 mg PO DAILY PRN 05/31/20 Labetalol HCl 100 mg PO BID 05/31/20 Baclofen 20 mg PO BID 06/04/20 Diclofenac Sodium [Pennsaid] 2 gm TP BID 06/04/20 Ibuprofen 400 mg PO BID PRN 06/04/20 Oxcarbazepine [Trileptal] 150 mg PO BID 06/04/20 Venlafaxine HCl ER [Effexor Xr -] 37.5 mg PO DAILY 06/04/20 Vortioxetine Hydrobromide [Trintellix] 20 mg PO DAILY 06/04/20 Prescription Drug Monitoring Program (I-STOP) results: I-STOP reviewed and no issues identified
[2020-06-05] MEDS ORDERED: CALCIUM CARBONATE 650 MG TABLET PO PRN (09:02)
[2020-06-05] MEDS ORDERED: PT OWN MED DRAWER 7, Y5N ONE (09:12)
[2020-06-05] MEDS: LABETALOL HCL 100 MG TABLET (FP) PO SCH (09:23)
[2020-06-05] MEDS: amLODIPine BESYLATE 10 MG TABLET (FP) PO SCH (09:23)
[2020-06-05] MEDS: BACLOFEN 10 MG TABLET (FP) PO SCH (09:23)
[2020-06-05] MEDS: ASPIRIN 81 MG CHEWABLE TABLETS PO SCH (09:24)
[2020-06-05] MEDS: OXcarbazepine 150 MG TABLET (UD) PO SCH (09:25)
[2020-06-05 09:38] VITALS: PULSE 83
[2020-06-05] MEDS ORDERED: VENLAFAXINE HCL 37.5 MG E.R. CAPSULE PO SCH (10:00)
[2020-06-05] MEDS ORDERED: PATIENT'S OWN MEDICATION (NON-FORMULARY) (Vortioxetine Hydrobromide [Trintellix] 20 MG) PO SCH (10:00)
--- NOTE | 2020-06-05 15:17 | EKG ---
Test Reason : Blood Pressure : / mmHG Vent. Rate : 080 BPM Atrial Rate : 080 BPM P-R Int : 156 ms QRS Dur : 092 ms QT Int : 378 ms P-R-T Axes : 017 -05 -09 degrees QTc Int : 435 ms SINUS RHYTHM WITH OCCASIONAL PREMATURE VENTRICULAR COMPLEXES MODERATE VOLTAGE CRITERIA FOR LVH, MAY BE NORMAL VARIANT NONSPECIFIC T WAVE ABNORMALITY ABNORMAL ECG WHEN COMPARED WITH ECG OF 03-JUN-2020 17:16, PREMATURE VENTRICULAR COMPLEXES ARE NOW PRESENT Confirmed by MD Olvin, Andre ([id number]) on 06/05/2020 3:16:59 PM Referred By: Geovanna ORELLANA Confirmed By:Andre Bah MD
[2020-06-05 15:46] VITALS: BP 124/82; TEMP 98.3
== END 2020-06-05 18:07 | disposition home or self-care (01) | DRG 254 ==
LOC: JER 16:52 → JERBED 19:49 → J5S 06-04 16:33
PROVIDERS: ADMIT Internal Medicine; ATTEND Internal Medicine
DX: R19.07 Generalized intra-abdominal and pelvic swelling, mass and lump (principal); I10 Essential (primary) hypertension; I69.354 Hemiplegia and hemiparesis following cerebral infarction affecting left non-dominant side; E66.9 Obesity, unspecified; Z68.37 Body mass index [BMI] 37.0-37.9, adult; N39.46 Mixed incontinence; K21.9 Gastro-esophageal reflux disease without esophagitis; K59.00 Constipation, unspecified; E78.5 Hyperlipidemia, unspecified; F41.8 Other specified anxiety disorders
CPT/HCPCS: 36415; 71046-TC-FY; 80048; 80053; 81003; 81500; 83735; 84100; 84702; 85025; 85610; 86304; 86850; 86900; 86901; 87086; 93005; 93010; 99285-25; J0475; J1644; U0003